=== PATIENT | female | born 1940 | race Caucasian/White ===

== ENCOUNTER → 2016-07-05 | Outpatient (CLI) | payer MEDICARE, OTHER ==
[~2016-07-05] MED LIST: ACET-1574 PO; ASPI-482 PO; BUDE10.2 IH; CAPT50TA2 PO; DOXY-103 PO; FELO10TA PO; FLUT100D IH; FLUT1DIS3 IH; FURO-68 PO; GABA600T PO; GLIP5TAB10 PO; IBUP-1027 PO; IPRA3AMP23 IH; LEVO150T PO; METF500T4 PO; NYST1POW2 PO; NYST1POW4 MC; POLY17PO5 PO; POTA20TA12 PO; PRED-220 PO; PRED20TA PO; VENTOLIN HFA18 GM IH
--- NOTE | 2016-07-05 10:38 | RAD ---
EXAM: DIGITAL DIAGNOSTIC BILATERAL, BREAST RIGHT. HISTORY: Bloody right breast discharge. COMPARISON: None. This is considered a new baseline. FINDINGS: Digital mammography was performed. Computer-aided detection (CAD) was utilized. Routine CC and MLO views of both breasts were obtained. There is suboptimal positioning, especially noted on the right MLO view, secondary to patient inability to stand as well as tolerance and cooperation issues. The breast parenchyma demonstrates scattered fibroglandular densities (tissue density B). No suspicious microcalcifications or mammographic mass is identified. No architectural distortion is seen. There is evidence of dilated duct involving the lateral periareolar right breast, at approximately 9:00. Given history, further evaluation was performed with right breast ultrasound. Ultrasound imaging was performed of the periareolar region. Posterior to the nipple and extending up towards the 9:00 region, there is evidence of a hypoechoic mass involving the duct. The mass could measure up to 7 mm in maximum dimension. There is evidence of internal vascularity. IMPRESSION: 1. The retroareolar right breast demonstrates intraductal mass which could measure up to 7 mm in maximum dimension. Mass demonstrates internal vascularity. Given history of bloody breast discharge, this could represent intraductal papilloma, although papillary carcinoma can have a similar appearance. Recommend surgical consultation regarding surgical excision after needle localization versus percutaneous vacuum assisted biopsy. 2. Results and recommendations were discussed with patient upon completion of examination. Attempts were made to phone the patient's custodial, but were not successful. BI-RADS CATEGORY: 4 SUSPICIOUS ABNORMALITY- BIOPSY SHOULD BE CONSIDERED RECOMMENDED FOLLOW-UP: SURG SURGICAL CONSULTATION PQRS compliance statement: Patient information was entered into a reminder system with a target due date for the next mammogram. Mammography is a sensitive method for finding small breast cancers, but it does not detect them all and is not a substitute for careful clinical examination. A negative mammogram does not negate a clinically suspicious finding and should not result in delay in biopsying a clinically suspicious abnormality. "Our facility is accredited by the [employer] Mammography Program."
== END | disposition home or self-care (01) ==
LOC: MAMMO 09:31
PROVIDERS: ATTEND Internal Medicine
DX: N63 Unspecified lump in breast (principal); N64.52 Nipple discharge
CPT/HCPCS: 76641; G0204; 77066

== ENCOUNTER 2016-07-27 07:58 | Day surgery (SDC) | payer MEDICARE, OTHER ==
[~2016-07-27] VITALS: Ht 162.6 cm; Wt 83.0 kg
[~2016-07-27 07:58] MED LIST changes: +CYAN10005 PO; +DICL100G7 TP; +ERGO500012 PO; +FELO5TAB PO; +GABA-586 PO; +IPRA3AMP NEB; +IV RINGERS,LACTATED 1000ML 1,000 ML IV SCH; +LEVO125T5 PO; +LIDOCAINE 1% 1 ML SYRINGE. ID PRN; +MELA3TAB PO; +METF1000 PO; +ONDANSETRON PF 4 MG/2 ML VIAL. IV PRN; +POLY17PO29 PO; -POLY17PO5 PO; +SENN8.6T3 PO
[2016-07-27] MEDS ORDERED: ONDANSETRON PF 4 MG/2 ML VIAL. ONE (09:20)
[2016-07-27] MEDS ORDERED: DESFLURANE 31 TO 60 MINUTES IH ONE (09:20)
[2016-07-27] MEDS ORDERED: PROPOFOL 20 ML IV ONE (09:20)
[2016-07-27] MEDS ORDERED: LIDOCAINE 2% PF Vial for OR 5 ML VIAL. ONE (09:20)
[2016-07-27] MEDS ORDERED: DEXAMETHASONE SOD PHOS 20 MG/5 ML VIAL. ONE (09:20)
[2016-07-27] MEDS ORDERED: fentaNYL PF VIAL 100 MCG/2 ML VIAL ONE (09:21)
[2016-07-27] MEDS ORDERED: BUPIVACAINE-EPI 0.25%-1:200000 50 ML VIAL. ONE (09:52)
--- NOTE | 2016-07-27 10:43 | PDOC ---
BRIEF OPERATIVE NOTE Date: July 27, 2016 Pre-Op Diagnosis Right breast mass Post-Op Diagnosis Same Procedure Performed Excisional biopsy Surgeon Chris Anesthesia Type: General Blood Loss 5ml Specimens Obtained Right breast mass Findings As above Complications None RAYMOND OSBORNE MD July 27, 2016 10:43
--- NOTE | 2016-07-27 10:44 | DISCH ---
DISCHARGE INSTRUCTIONS Condition on Discharge Condition on Discharge: Stable Activity After Discharge Activity Instructions for Disc: No restrictions Diet after Discharge Diet after Discharge: Regular Wound Incision Care Other wound/incision instructi: May shower in 24 hours top dressing maybe removed prior Contacting the DRChrystal after DC Call your doctor for: If your condition worsens Follow-Up Follow up with: Dr Osborne in 2 weeks RAYMOND OSBORNE MD July 27, 2016 10:44
[2016-07-27] MEDS: fentaNYL PF VIAL 100 MCG/2 ML VIAL IV PRN ×4 (10:55→11:23)
[2016-07-27 11:55] VITALS: BP 124/59
--- NOTE | 2016-07-27 15:43 | OP ---
DATE OF SURGERY: 07/27/2016 PREOPERATIVE DIAGNOSIS: Right breast mass with discharge. POSTOPERATIVE DIAGNOSIS: Right breast mass with discharge. PROCEDURE: Excisional biopsy of right breast mass. SURGEON: Jamel Osborne M.D. INDICATIONS: The patient is a 76-year-old female who has had bloody nipple discharge for several months. Mammogram shows a mass just beneath the nipple at the 9 o'clock position. Procedure of excisional biopsy was explained to the patient in detail. Risks and benefits were also discussed including bleeding and infection. Alternatives of this procedure were also discussed with the patient who seemed to understand and gave verbal and written consent to have the procedure performed. DESCRIPTION OF PROCEDURE: The patient was taken to the Operating Room and placed in the supine position. General anesthesia was initiated. Once the patient was asleep, LMA was placed. Her right breast and chest were prepped and draped in the usual sterile fashion using ChloraPrep. An area just at the nipple-areolar complex was injected with 0.25% Marcaine with epinephrine. Incision was made with 15-blade scalpel. It was carried down through subcutaneous tissue with electrocautery. The electrocautery was used to sharply excise the mass as well as some ducts that contained the bloody discharge. This was sent for pathology. The wound was then closed in 2 layers, deep layer with running 3-0 Vicryl, and the skin was reapproximated with 4-0 subcuticular Monocryl. Mastisol, Steri-Strips, and Band-Aids were applied as dressing. The patient was awakened, extubated in the Operating Room, taken to Recovery in stable condition. All sponge, instrument counts were listed as correct. Estimated blood loss was 5 mL. JAMEL OSBORNE MD DR: SCOTT/ronald JOB#: [id number] / [id number] Geeta Jackson MD
== END 2016-07-27 12:24 | disposition home or self-care (01) ==
LOC: SURG 07:58
PROVIDERS: ATTEND Surgery
DX: N63 Unspecified lump in breast (principal); N64.52 Nipple discharge; I10 Essential (primary) hypertension; J44.9 Chronic obstructive pulmonary disease, unspecified; E66.9 Obesity, unspecified; M19.90 Unspecified osteoarthritis, unspecified site; E11.9 Type 2 diabetes mellitus without complications; F41.9 Anxiety disorder, unspecified; F32.9 Major depressive disorder, single episode, unspecified; E03.9 Hypothyroidism, unspecified; Z90.710 Acquired absence of both cervix and uterus; Z87.01 Personal history of pneumonia (recurrent); Z72.89 Other problems related to lifestyle
CPT/HCPCS: 19120; 82947; J0690; J1100; J2405; J2704; J3010; C1769